=== PATIENT | male | born 1975 | race Caucasian/White ===

== ENCOUNTER 2020-05-12 02:43 | Emergency (ER) | payer SELFPAY ==
[2020-05-12 05:31] LABS: ABSOLUTE BASOPHILS # (AUTO) 0.1 10^3/uL (0.0-0.2); ABSOLUTE EOSINOPHILS # (AUTO) 0.4 10^3/uL (0.0-0.6); ABSOLUTE LYMPHOCYTES (AUTO) 3.2 10^3/uL (0.5-4.7); ABSOLUTE NEUT (AUTO) 5.9 10^3/uL (1.7-8.2); BASOPHILS % (AUTO) 0.8 % (0-2); HEMATOCRIT 45.6 % (37.9-51.0); HEMOGLOBIN 15.9 g/dL (13.5-17.0); LYMPHOCYTES % (AUTO) 30.3 % (13-45); MEAN CORPUSCULAR HEMOGLOBIN 28.7 pg (27.0-33.4); MEAN CORPUSCULAR HGB CONC 34.9 g/dL (32.0-36.0); MEAN CORPUSCULAR VOLUME 82 fl (80-97); MONOCYTES % (AUTO) 9.1 % (3-13); PLATELET COUNT 213 10^3/uL (150-450); RED BLOOD COUNT 5.54 10^6/uL (4.35-5.55); RED CELL DISTRIBUTION WIDTH 13.4 % (11.5-14.0); SEGMENTED NEUTROPHILS % (AUTO) 55.8 % (42-78); TOTAL CELLS COUNTED % (AUTO) 100 %; WHITE BLOOD COUNT 10.5 10^3/uL (4.0-10.5)
[2020-05-12 05:54] LABS: ALBUMIN 4.5 g/dL (3.5-5.0); ALKALINE PHOSPHATASE 101 U/L (38-126); ANION GAP 9 (5-19); ASPARTATE AMINO TRANSFERASE 35 U/L (17-59); BILIRUBIN,DIRECT 0.2 mg/dL (0.0-0.4); BILIRUBIN,TOTAL 0.7 mg/dL (0.2-1.3); BLOOD UREA NITROGEN 16 mg/dL (7-20); CALCIUM 10.4 mg/dL (8.4-10.2); CARBON DIOXIDE 29 mmol/L (22-30); CHLORIDE 98 mmol/L (98-107); CREATINE KINASE 197 U/L (55-170); GLUCOSE 122 mg/dL (75-110); POTASSIUM 4.4 mmol/L (3.6-5.0)
[2020-05-12 06:03] LABS: CREATINE KINASE MB 1.79 ng/mL (<4.55); TROPONIN I < 0.012 ng/mL
--- NOTE | 2020-05-12 08:18 | ER Document Report ---
ED Cardiac - General Chief Complaint: Chest Pain Stated Complaint: CHEST PAIN Time Seen by Provider: 05/12/20 08:03 Primary Care Provider: SONIA TRAORE MD [ACTIVE STAFF] - Follow up in 3-5 days Notes: Patient is a 44-year-old male who comes to the emergency department for chief complaint of chest pain. Patient states he was watching TV last night when he suddenly started feeling a "cramp" in the center of his chest just above his abdomen at the sternum, he states this worsened and became a severe pain, he states he became nauseated and thought he would vomit. He states that this very painful episode lasted for a brief period until EMS arrived, started to improve, and then resolved. He states he has been having heartburn since this episode. He did take 325 milligrams aspirin dose at home before EMS arrived. Patient denies any current complaints, denies shortness of breath, injury, fever/chills. Patient takes lisinopril and hydrochlorothiazide for hypertension, takes no other medications, denies any diagnosed medical history otherwise. He denies smoking, alcohol, recreational drugs. He states his sister and father both had MIs. He had a negative stress test 2 years ago. - Related Data Allergies/Adverse Reactions: No Known Allergies Allergy (Unverified 05/12/20 08:18) Home Medications: lisinopril, HCTZ Past Medical History - General Information source: Patient - Social History Smoking Status: Never Smoker Frequency of alcohol use: None Drug Abuse: None Lives with: Family Family History: Reviewed & Not Pertinent - Past Medical History Cardiac Medical History: Reports: Hx Hypertension Surgical Hx: Negative - Immunizations Immunizations up to date: Yes Hx Diphtheria, Pertussis, Tetanus Vaccination: Yes Review of Systems - Review of Systems Constitutional: No symptoms reported EENT: No symptoms reported Cardiovascular: See HPI Respiratory: No symptoms reported Gastrointestinal: See HPI Genitourinary: No symptoms reported Male Genitourinary: No symptoms reported Musculoskeletal: No symptoms reported Skin: No symptoms reported Hematologic/Lymphatic: No symptoms reported Neurological/Psychological: No symptoms reported Physical Exam - Vital signs Vitals: Temp Pulse Resp BP Pulse Ox 98.2 F 92 21 H 137/86 H 96 05/12/20 03:04 05/12/20 03:04 05/12/20 03:04 05/12/20 03:04 05/12/20 03:04 - Notes Notes: GENERAL: Alert, interacts well. No acute distress. HEAD: Normocephalic, atraumatic. EYES: Pupils equal, round, and reactive to light. Extraocular movements intact. ENT: Oral mucosa moist, tongue midline. Oropharynx unremarkable. Airway patent. NECK: Full range of motion. Supple. Trachea midline. No lymphadenopathy. LUNGS: Clear to auscultation bilaterally, no wheezes, rales, or rhonchi. No respiratory distress. Non-tender chest wall. HEART: Regular rate and rhythm. No murmur ABDOMEN: Soft, non-tender. Non-distended. Bowel sounds present in all 4 quadrants. GENITOURINARY: Deferred EXTREMITIES: Moves all 4 extremities spontaneously. No edema, normal radial and dorsalis pedis pulses bilaterally. No cyanosis. BACK: no cervical, thoracic, lumbar midline tenderness. No saddle anesthesia, normal distal neurovascular exam. Moves all extremities in full range of motion. NEUROLOGICAL: Alert and oriented x3. Normal speech. Cranial nerves II through XII grossly intact. Strength 5/5 in all extremities. PSYCH: Normal affect, normal mood. SKIN: Warm, dry, normal turgor. No rashes or lesions noted. Course - Re-evaluation Re-evalutation: Heart score is 3 (age of >45 and multiple risk factors including hypertension, obesity, positive family history). Patient asymptomatic on my exam except for some mild heartburn but he declines medication. Patient called out to nursing staff, who went to evaluate him, he states heartburn sensation is gotten a lot worse and he is starting to get nauseated. He was given Zofran, Maalox, viscous lidocaine. After the symptoms complete resolved. Troponin negative, cycled and negative. EKG unremarkable. Chest x- ray, CBC, chemistry without concerning findings. Abdomen nontender and he has no abdominal pain reported. Based on his low heart score, work-up, improvement was symptom management, overall evaluation I have a high suspicion of esophageal spasm and reflux and a lower suspicion of ACS. I discussed with patient. Patient states satisfaction, request primary care referral because he does not have one here yet, I discussed recommendations and return precautions in detail. Patient states understanding and agreement. Stable and well-appearing at time of discharge without any complaints. - Vital Signs Vital signs: Temp Pulse Resp BP Pulse Ox 98.1 F 92 19 129/43 H 99 05/12/20 09:00 05/12/20 03:04 05/12/20 10:01 05/12/20 10:01 05/12/20 10:01 - Laboratory Results Result Diagrams: 05/12/20 05:07 05/12/20 05:07 Laboratory Results Interpreted: 05/12/20 05:07 Sodium 136.1 L Glucose 122 H Calcium 10.4 H Creatine Kinase 197 H Critical Laboratory Results Reviewed: No Critical Results - Radiology Results Critical Radiology Results Reviewed: No Critical Results - EKG Interpretation by Me Additional EKG results interpreted by me: EKG shows sinus rhythm at a rate of 91, QTc 434, normal axis, no T wave inversions or ST segment changes in consecutive leads. Machine reads as normal. Discharge - Discharge Clinical Impression: Nausea Chest pain Qualifiers: Chest pain type: unspecified Qualified Code(s): R07.9 - Chest pain, unspecified GERD (gastroesophageal reflux disease) Qualifiers: Esophagitis presence: esophagitis presence not specified Qualified Code(s): K21.9 - Gastro-esophageal reflux disease without esophagitis Condition: Stable Disposition: HOME, SELF-CARE Additional Instructions: Your heart work-up is negative. Based on your symptoms and evaluation I suspect that your pain was from an esophageal spasm, we are treating you for this. We are treated to reduce inflammation of the upper gastrointestinal tract. Take Ph energan for nausea, take Carafate and Pepcid as prescribed to help treat this, you can take additional Rolaids, Tums, Maalox, etc. if needed. You can take Tylenol for pain. Avoid NSAIDs, alcohol, smoking, caffeine, spicy food. Start with clear fluids, progress to bland diet. Follow-up with primary care for additional evaluation and treatment. Return if you worsen including severe worsening pain, vomiting, difficulty breathing, fever, or any other concerning or worsening symptoms. Prescriptions: Sucralfate [Carafate 1 gm Tablet] 1 gm PO QID #20 tablet Famotidine [Pepcid 20 mg Tablet] 20 mg PO BID #14 tablet Promethazine HCl [Phenergan 25 mg Tablet] 25 mg PO Q6H PRN #15 tablet PRN Reason: Referrals: SONIA TRAORE MD [ACTIVE STAFF] - Follow up in 3-5 days
[2020-05-12] MEDS ORDERED: ONDANSETRON HCL INJ/PF 4 MG/2 ML SDV IV ONE (08:35)
[2020-05-12] MEDS ORDERED: LIDOCAINE 2% VISCOUS SOLN 15 ML UDCUP PO ONE (08:36)
[2020-05-12] MEDS ORDERED: MAG HYDROX/AL HYDROX/SIMETH SUSP 30 ML UDCUP PO ONE (08:36)
--- NOTE | 2020-05-12 08:36 | RADIOLOGY REPORT (SQ) ---
EXAM DESCRIPTION: CHEST SINGLE VIEW IMAGES COMPLETED DATE/TIME: 05/12/2020 8:21 am REASON FOR STUDY: chest pain COMPARISON: None. EXAM PARAMETERS: NUMBER OF VIEWS: One view. TECHNIQUE: Single frontal radiographic view of the chest acquired. RADIATION DOSE: NA LIMITATIONS: None. FINDINGS: LUNGS AND PLEURA: No opacities, masses or pneumothorax. No pleural effusion. MEDIASTINUM AND HILAR STRUCTURES: No masses. Contour normal. HEART AND VASCULAR STRUCTURES: Heart normal in size. Normal vasculature. BONES: No acute findings. HARDWARE: None in the chest. OTHER: No other significant finding. IMPRESSION: NO ACUTE RADIOGRAPHIC FINDING IN THE CHEST. TECHNICAL DOCUMENTATION: JOB ID: [id number] 2010 [employer]- All Rights Reserved Reading location - IP/workstation name: [email or web address]
[2020-05-12] MEDS ORDERED: SUCRALFATE 1 GM TABLET PO ONE (09:44)
[2020-05-12 10:36] VITALS: BP 135/73
--- NOTE | 2020-05-12 14:47 | EKG REPORT ---
SEVERITY:- NORMAL ECG - SINUS RHYTHM : Confirmed by: Babak Kim 12-May-2020 14:47:15
== END 2020-05-12 10:35 | disposition home or self-care (01) ==
LOC: ER 02:43
DX: K21.9 Gastro-esophageal reflux disease without esophagitis (principal); R07.9 Chest pain, unspecified; R11.0 Nausea; Z79.899 Other long term (current) drug therapy; I10 Essential (primary) hypertension
CPT/HCPCS: 93005; 99285; 96374; 36415; 82553; 82550; 85025; 80053; 84484; 71045; 93010; J3490; J2405